=== PATIENT | male | born 1945 | race Caucasian/White ===

== ENCOUNTER 2017-04-13 08:32 | Inpatient (IN) ==
[2017-04-13 09:23] LABS: Mean Corpuscular HGB Conc 33.1 g/dL (31.0-36.0); Mean Corpuscular Hemoglobin 31.8 pg (26.0-34.0); Platelet Count 228 K/mcL (140-440); RBC 4.73 M/mcL (4.50-5.90); Red Cell Distribution Width 13.7 % (11.5-14.5)
--- NOTE | 2017-04-13 09:29 | Emergency Department Note ---
Upper Extremity HPI - General Chief Complaint: Extremity Injury, Upper Stated Complaint: infected, swollen l forearm Time Seen by Provider: 04/13/17 09:19 Source: patient Mode of arrival: ambulatory Limitations: no limitations - History of Present Illness HPI Narrative: 71-year-old male ,was sawing a limb from an apple tree, on Wednesday, 3 days ago. The branch fell on his arm ,received a puncture wound Place: home - Related Data Home Medications Medication Instructions Recorded Confirmed multivitamin tablet 1 tab PO QDAY 09/27/15 04/11/17 Previous Rx's Medication Instructions Recorded sildenafil 100 mg tablet 100 mg PO ONCE #7 tab 07/09/16 simvastatin 40 mg tablet 40 mg PO QPM #90 tab 07/10/16 HYDROcodone/ACETAMINOPHEN [[place] 1 each PO 3-4XD #14 tablet 11/14/16 7.5-325 Tablet] Naproxen 500 mg PO 1HRACBID #14 tablet 11/14/16 Nortriptyline HCl [Pamelor] 10 mg PO PCS #30 capsule 11/14/16 carBAMazepine [Tegretol Xr] 400 mg PO 1HRACBID #30 tab.er.12h 11/14/16 Cephalexin [Keflex] 500 mg PO QIDP #40 capsule 04/11/17 Allergies Allergy/AdvReac Type Severity Reaction Status Date / Time Sulfa (Sulfonamide Allergy Unknown Skin Verified 11/14/16 17:31 Antibiotics) reaction Tetracyclines Allergy Unknown Skin Verified 11/14/16 17:31 reaction Review of Systems All systems ED: reviewed and negative except as stated. Constitutional: Denies: fever Eyes: Denies: eye pain ENT ED: Denies: ear pain Cardiovascular: Denies: chest pain Respiratory: Denies: cough Gastrointestinal: Denies: abdominal pain Genitourinary: Denies: urgency Integumentary: Reports: as per HPI, other (redness and tenderness to the left forearm) Past Medical History - Past Medical History Medical history: Reports: hypertension, other (3cm aaa, BPH) Surgical history ED: Reports: other (prostatectomy, baCK SURGERY.) Family history: Reports: cancer (MOTHER CERVICAL, FATHER PANCREATIC) - Social History smoking status: Current every day smoker Alcohol use: Reports: Occasionally Drug use: Reports: none Physical Exam - General Limitations: no limitations General appearance: alert - Head Head exam: atraumatic - Eye Eye exam: Present: normal appearance - ENT ENT exam: normal exam - Neck Neck exam: Present: normal inspection, full ROM - Chest Chest inspection: Present: normal inspection - Respiratory Respiratory exam: Present: normal lung sounds bilaterally, respiratory distress - Cardiovascular Cardiovascular exam: Present: regular rate, normal rhythm, bradycardia - Abdominal Exam Abdominal exam: Present: soft. Absent: distention, tenderness - Expanded Upper Extremity Exam Shoulder exam: Present: normal inspection, full ROM Arm exam: Present: normal inspection, full ROM Elbow exam: Present: normal inspection, full ROM Forearm/Wrist exam: Present: tenderness, swelling, erythema, other (PUNCTURE WOUND WITH TENDERNESS.) Course Vital Signs Temperature 97.6 F 04/13/17 08:33 Pulse Rate 96 H 04/13/17 08:33 Respiratory Rate 16 04/13/17 08:33 Blood Pressure 117/78 04/13/17 08:33 Pulse Oximetry (%) 98 04/13/17 08:33 Temperature 97.6 F 04/13/17 08:33 Pulse Rate 79 04/13/17 11:01 Respiratory Rate 18 04/13/17 11:01 Blood Pressure 128/76 04/13/17 11:01 Pulse Oximetry (%) 95 04/13/17 11:01 Extremity Injury, Upper - MDM Narrative Medical decision making narrative: Lactic acid 1.0, CBC 13,000. Dr. Das here to evaluate the patient started on vancomycin and Zosyn. To be admitted possible surgery if continues. - Lab Data Result diagrams: 04/13/17 08:50 04/13/17 08:50 Lab Results 04/13/17 04/13/17 04/13/17 Range/Units 08:50 08:50 08:50 WBC 15.7 H (4.5-11.0) K/mcL RBC 4.73 (4.50-5.90) M/mcL Hgb 15.0 (13.5-16.5) g/dL Hct 45.4 (41.0-55.0) % MCV 96.0 (80.0-100.0) fL MCH 31.8 (26.0-34.0) pg MCHC 33.1 (31.0-36.0) g/dL RDW 13.7 (11.5-14.5) % Plt Count 228 (140-440) K/mcL MPV 8.9 (7.4-10.4) fL Total Counted 200 Seg Neutrophils % 78 (38-78) % Band Neutrophils % 5 (0-10) % Lymphocytes % 13 L (15-49) % Monocytes % (Manual) 4 (1-12) % Eosinophils % (Manual) 1 (0-7) % Platelet Estimate Normal (NORMAL) RBC Morphology Normal (NORMAL) VBG Lactic Acid 1.0 (0.5-2.2) mmol/L Sodium 134 (133-145) mmol/L Potassium 4.4 (3.3-5.1) mmol/L Chloride 97 (96-108) mmol/L Carbon Dioxide 23 (22-30) mmol/L Anion Gap 14.0 (8-16) BUN 11 (8-23) mg/dl Creatinine 1.1 (0.7-1.2) mg/dl GFR Calculation 68 Glucose 142 H (70-105) mg/dL Calcium 9.1 (8.6-10.4) mg/dl Total Bilirubin 0.6 (0.0-1.0) mg/dL AST 10 (0-37) U/l ALT 8 (0-40) U/l Alkaline Phosphatase 96 (39-117) U/L Total Protein 6.8 (5.9-8.4) gm/dL Albumin 3.8 (3.2-5.2) gm/dL Globulin 3.0 (2.2-3.7) gm/dL Albumin/Globulin Ratio 1.3 (1.0-2.3) Disposition Clinical Impression: Cellulitis of left forearm Disposition: Xfer As Outpt/Obs ([facility]) Condition: Good Referrals: Tres Eugene MD [Primary Care Provider] -
[2017-04-13 09:44] LABS: ALT/SGPT 8 U/l (0-40); Albumin 3.8 gm/dL (3.2-5.2); Albumin/Globulin Ratio 1.3 (1.0-2.3); Alkaline Phosphatase 96 U/L (39-117); Blood Urea Nitrogen 11 mg/dl (8-23)
[2017-04-13 10:00] LABS: Band Neutrophils % 5 % (0-10); Eosinophils % (Manual) 1 % (0-7); Lymphocytes % 13 % (15-49); Monocytes % (Manual) 4 % (1-12); Platelet Estimate NORMAL (NORMAL); RBC Morphology NORMAL (NORMAL); Segmented Neutrophils % 78 % (38-78)
[2017-04-13] MEDS ORDERED: ONDANSETRON 4 MG/2 ML VIAL IV ONE (10:29)
[2017-04-13] MEDS ORDERED: VANCOMYCIN 1,000 MG in 0.9 % SODIUM CHLORIDE 250 ML IV ONE (10:30)
[2017-04-13] MEDS ORDERED: ONDANSETRON 4 MG/2 ML VIAL ONE (10:34)
[2017-04-13] MEDS ORDERED: HYDROmorphone 2 MG/ML SYRINGE ONE (10:34)
--- NOTE | 2017-04-13 11:04 | XRay Report ---
CLINICAL INFORMATION: Wrist pain and swelling COMPARISON: None FINDINGS: No fracture or other osseous abnormality. Joint spaces are normal in width and alignment. Soft tissues are unremarkable. IMPRESSION: Normal exam. Interpreted and Authenticated by: Igor Reyez 04/13/17
[2017-04-13] MEDS ORDERED: PIPERACILLIN SODIUM/TAZOBACTAM 3.375 GM in DEXTROSE 5% IN WATER 50 ML IV SCH ×2 (11:45→12:30)
[2017-04-13] MEDS: HYDROmorphone 2 MG/ML SYRINGE IV PRN ×2 (11:58→13:35)
[2017-04-13] MEDS ORDERED: HYDROcodone/APAP 5/325MG TABLET PO PRN (12:23)
[2017-04-13] MEDS ORDERED: ONDANSETRON 4 MG/2 ML VIAL IV PRN (12:23)
[2017-04-13] MEDS ORDERED: HYDROmorphone 2 MG/ML SYRINGE IV PRN ×2 (13:33→14:24)
[2017-04-13] MEDS ORDERED: ACETAMINOPHEN 325 MG TABLET PO PRN (14:24)
[2017-04-13] MEDS: 0.9 % SODIUM CHLORIDE 1,000 ML IV SCH (16:28)
[2017-04-13] MEDS ORDERED: ZOLPIDEM 5 MG TABLET PO PRN ×2 (17:40→21:00)
--- NOTE | 2017-04-13 17:45 | General Surg History&Physical ---
History of Present Illness Patient information: Note initiated : 04/13/17 at 5:43 pm Service Date, if different from initiated Date: [] Patient: Zeke Salas 71 y/o M admitted on 04/13/17 for Infected, Swollen Lt Forearm. Chief Complaint: [] Chief complaint: swelling and pain left forearm HPI: Mr. Salas is a 71 year old male whois admitted with severe cellulitis of the left forearm. The patient was determined an apple tree on Wednesday when L [place] broke and punctured him and his left forearm. He was seen in the emergency room and evaluated. He was treated with antibiotics and discharged Since discharge he has had progressive swelling and rednessover his arm that is spread above his elbow. He states that he was able to express some purulence from the puncture site yesterday and today. He has extensive cellulitis and has leukocytosis. He is admitted for antibiotics IV, CT scan of the forearm; and possible exploration if he has retained foreign body or abscess formation. Review of Systems - Constitutional no headache(s), no malaise, no weakness - EENT Nose, mouth and throat: no abnormal hearing, no dizziness, no hoarseness, no throat swelling - Cardiovascular no claudication, no edema, no palpatations, no slow heart rate, no syncope - Respiratory no cough, no wheezing, no chest congestion - Gastrointestinal no abdominal pain, no constipation, no dysphagia, no heartburn, no nausea, no vomiting - Genitourinary no urinary incontinence, no urinary urgency - Musculoskeletal no arthralgias, no joint swelling, no numbness, no tingling - Integumentary no hirsutism, no pruritus, no swelling, no jaundice - Neurological no abnormal hearing, no confusion, no headache(s) (7 units DNA of his urine did not), no numbness, no syncope, no tremor(s) - Psychiatric no anxiety, no depression, no mood swings - Endocrine no fatigue (2 much), no palpitations (is changed), no polyuria (note whether this just) - Hematologic/Lymphatic no easy bleeding, no easy bruising, no lymphadenopathy - Allergic/Immunologic no tongue swelling, no throat swelling, no uticaria, no wheezing, no lip swelling (the entire genital and investigated intravaginal exactly For this spot Ludin. Labetalol) Past History Past medical history: prostate cancer Hypertension ( Past surgical history: radical prostatectomy with bilateral pelvic lymphadenectomy Back surgery Inguinal hernia surgery Past family history: pancreatic cancer Uterine cervical cancer Past social history: occasional alcohol use [id number] smoking history no substance abuse Medications and Allergies Home Medications Medication Instructions Recorded Confirmed Type Cephalexin [Keflex] 500 mg PO QIDP #40 capsule 04/11/17 04/13/17 Rx Allergies Allergy/AdvReac Type Severity Reaction Status Date / Time Sulfa (Sulfonamide Allergy Unknown Skin Verified 11/14/16 17:31 Antibiotics) reaction Tetracyclines Allergy Unknown Skin Verified 11/14/16 17:31 reaction Exam Temp Pulse Resp BP Pulse Ox 98.2 F 76 16 139/81 93 04/13/17 15:34 04/13/17 13:58 04/13/17 15:34 04/13/17 15:34 04/13/17 15:34 - General physical appearance well developed, well nourished, no distress - Eyes PERRL, normal ocular movement - ENT normal pinna, normal nares, normal mucosa, no hearing loss, no congestion - Head Head exam IM: Present: atraumatic, normocephalic - Neck no masses, no bruits, trachea midline, no lymphadectomy, no venous distension - Cardiovascular Cardiovascular exam IM: Present: normal rate and rhythm - Respiratory normal expansion, normal respiratory effort, clear to percussion, clear to auscultation - Abdomen Abdomen: Present: soft, non tender, bowel sounds, surgical scars Hernia: Present: none, incisional (small lower midline incisional hernia) - Integumentary Present: no rash, no growths, no abnormal pigmentation - Neurologic Present: normal coordination, normal sensation - Musculoskeletal Present: normal gait, normal posture, other (swollenleft forearm extending from the wrist to slightly above the antecubital space with intense erythema and 4+ tenderness. Puncture wound along the radial aspect of forearm with small amount of purulent drainage;no axillary adenopathy noted) - Psychiatric Present: oriented to time, oriented to person, oriented to place, speech is normal, memory intact Assessment and Plan (1) Puncture wound of arm, left, complicated Status: Acute (2) Cellulitis of arm, left vancomycin 1 g IV every 12 hours Zosyn 500 mg IV every [address] of forearm with IV contrast Wide incision and debridement if neede Status: Acute
[2017-04-13 18:14] LABS: Blood Urea Nitrogen 11 mg/dl (8-23)
[2017-04-13] MEDS ORDERED: IOPAMIDOL 100 ML BOTTLE IJ ONE (18:28)
--- NOTE | 2017-04-13 18:48 | Cat Scan Report ---
CLINICAL INFORMATION: History of trauma with foreign body lies in the extensor compartment of the forearm with associated inflammation or infection TECHNIQUE: 80 cc of Optiray 320 were injected intravenously and three minutes later 2.5 helical slices were obtained from the elbow through the mid metacarpal region. Following reconstruction, sagittal coronal axial reformatted images were processed and reviewed at multiple windows and levels. FINDINGS: There is a 3 x 1 cm foreign body, likely a splinter, lodged in the extensor compartment of the mid forearm. There is mild surrounding myositis, but no definite evidence of a discrete abscess. It is adjacent to distal arterial branches, but there is no evidence of active hemorrhage to suggest arterial disruption. The radius and ulna are spared - no osseous abnormality. Flexor compartment is entirely unremarkable. There is a moderate amount of cellulitis in the subcutaneous fat of the elbow extending into the mid forearm - particularly on the ulnar side. IMPRESSION: 1. 3 x 1 cm air-containing linear foreign body lodged in the extensor compartment of the mid forearm - most likely a large wood splinter. There is moderate surrounding myositis, but no evidence of discrete abscess. It does not involve the bone. No evidence of hemorrhage although the splinter is adjacent to distal arborizing arterial branches. Interpreted and Authenticated by: Igor Reyez 04/13/17
[2017-04-13] MEDS: VANCOMYCIN 1,000 MG in 0.9 % SODIUM CHLORIDE 250 ML IV SCH (20:21)
[2017-04-13] MEDS: DOCUSATE SODIUM 100 MG CAPSULE PO SCH (20:22)
[2017-04-13] MEDS: 0.9 % SODIUM CHLORIDE 10 ML SYRINGE IV SCH (20:22)
[2017-04-13] MEDS: PIPERACILLIN SODIUM/TAZOBACTAM 3.375 GM in DEXTROSE 5% IN WATER 50 ML IV SCH (22:11)
[2017-04-14] MEDS: PIPERACILLIN SODIUM/TAZOBACTAM 3.375 GM in DEXTROSE 5% IN WATER 50 ML IV SCH ×3 (05:28→21:37)
[2017-04-14] MEDS: 0.9 % SODIUM CHLORIDE 10 ML SYRINGE IV SCH (05:28)
[2017-04-14 06:41] LABS: Mean Cell Volume 96.4 fL (80.0-100.0); Mean Corpuscular HGB Conc 33.1 g/dL (31.0-36.0); Platelet Count 194 K/mcL (140-440); RBC 4.32 M/mcL (4.50-5.90); Red Cell Distribution Width 13.7 % (11.5-14.5)
[2017-04-14 06:52] LABS: Blood Urea Nitrogen 11 mg/dl (8-23)
[2017-04-14 07:43] LABS: Eosinophils % (Manual) 5 % (0-7); Lymphocytes % 12 % (15-49); Monocytes % (Manual) 9 % (1-12); Platelet Estimate NORMAL (NORMAL); RBC Morphology NORMAL (NORMAL); Segmented Neutrophils % 74 % (38-78)
[2017-04-14] MEDS ORDERED: ONDANSETRON 4 MG/2 ML VIAL IV ONE (07:45)
[2017-04-14] MEDS ORDERED: MIDAZOLAM 5 MG/5 ML VIAL IV ONE (07:45)
[2017-04-14] MEDS ORDERED: PROPOFOL 200 MG/20 ML VIAL IV ONE (07:45)
[2017-04-14] MEDS ORDERED: GLYCOPYRROLATE 0.2 MG/ML VIAL IV ONE (07:45)
[2017-04-14] MEDS ORDERED: KETAMINE 100 MG/ML ML IV ONE (07:45)
[2017-04-14] MEDS ORDERED: LIDOCAINE HCL/PF 100 MG/5 ML SYRINGE IV ONE (07:45)
[2017-04-14] MEDS ORDERED: fentaNYL 100 MCG/2 ML VIAL IV ONE (07:45)
[2017-04-14] MEDS ORDERED: ENOXAPARIN 40 MG/0.4 ML SYRINGE SQ SCH (09:00)
[2017-04-14] MEDS ORDERED: PROMETHAZINE 25 MG/ML VIAL IV PRN (09:58)
[2017-04-14] MEDS ORDERED: HYDROmorphone 2 MG/ML SYRINGE IV PRN (09:58)
[2017-04-14] MEDS ORDERED: IPRATROPIUM/ALBUTEROL 3 ML AMPUL.NEB NEB PRN (09:58)
[2017-04-14] MEDS ORDERED: BENZOCAINE/MENTHOL 1 LOZENGE PO PRN (09:58)
[2017-04-14] MEDS ORDERED: METHOCARBAMOL 1,000 MG/10 ML VIAL IV PRN (09:58)
[2017-04-14] MEDS ORDERED: MEPERIDINE 25 MG/ML SYRINGE IV PRN (09:58)
[2017-04-14] MEDS ORDERED: LACTATED RINGERS 1,000 ML IV SCH (10:00)
--- NOTE | 2017-04-14 10:27 | Brief Operative Note ---
Date of procedure: 04/14/17 Pre-op diagnosis: foreign body with cellulitis of left forearm Post-op diagnosis: same Procedure: exploration with debridement and removal of wood fragment left arm Grafts/Implants: No Anesthesia: GLMA Findings: very large wood fragment imbedded in muscle of left forearm extending down to radius ;some early necrosis of tissue Complications: none Surgeon: Rupert Das Estimated blood loss (cc): 0 Specimens Removed/Pathology: none sent Condition: stable Disposition: PACU
[2017-04-14] MEDS ORDERED: LABETALOL 5 MG/ML ML IV ONE (10:49)
[2017-04-14] MEDS: fentaNYL 100 MCG/2 ML VIAL IV PRN ×4 (10:55→11:17)
[2017-04-14] MEDS: METOPROLOL TARTRATE 5 MG/5 ML VIAL IV SCH (11:09)
[2017-04-14] MEDS ORDERED: ACETAMINOPHEN 325 MG TABLET PO PRN (11:40)
[2017-04-14] MEDS ORDERED: ZOLPIDEM 5 MG TABLET PO PRN (11:40)
[2017-04-14] MEDS ORDERED: ONDANSETRON 4 MG/2 ML VIAL IV PRN (11:40)
[2017-04-14] MEDS: 0.9 % SODIUM CHLORIDE 1,000 ML IV SCH (11:42)
[2017-04-14] MEDS: HYDROcodone/APAP 5/325MG TABLET PO PRN ×2 (14:16→19:28)
[2017-04-14] MEDS: HYDROmorphone 2 MG/ML SYRINGE IV PRN (19:32)
[2017-04-14] MEDS: VANCOMYCIN 1,000 MG in 0.9 % SODIUM CHLORIDE 250 ML IV SCH (20:08)
[2017-04-14] MEDS: DOCUSATE SODIUM 100 MG CAPSULE PO SCH (20:10)
[2017-04-15] MEDS: HYDROmorphone 2 MG/ML SYRINGE IV PRN ×4 (00:38→21:21)
[2017-04-15] MEDS: HYDROcodone/APAP 5/325MG TABLET PO PRN ×2 (00:38→07:22)
[2017-04-15] MEDS: 0.9 % SODIUM CHLORIDE 1,000 ML IV SCH ×3 (02:37→20:11)
[2017-04-15] MEDS: PIPERACILLIN SODIUM/TAZOBACTAM 3.375 GM in DEXTROSE 5% IN WATER 50 ML IV SCH ×3 (05:47→22:25)
[2017-04-15 07:30] LABS: Mean Cell Volume 95.7 fL (80.0-100.0); Mean Corpuscular HGB Conc 33.5 g/dL (31.0-36.0); Platelet Count 214 K/mcL (140-440); RBC 4.03 M/mcL (4.50-5.90)
[2017-04-15 07:51] LABS: Blood Urea Nitrogen 10 mg/dl (8-23)
[2017-04-15 08:38] LABS: Eosinophils % (Manual) 2 % (0-7); Lymphocytes % 19 % (15-49); Monocytes % (Manual) 6 % (1-12); Platelet Estimate NORMAL (NORMAL); RBC Morphology NORMAL (NORMAL); Segmented Neutrophils % 73 % (38-78)
[2017-04-15] MEDS: ENOXAPARIN 40 MG/0.4 ML SYRINGE SQ SCH (09:56)
[2017-04-15] MEDS: DOCUSATE SODIUM 100 MG CAPSULE PO SCH ×3 (09:57→21:13)
[2017-04-15] MEDS: VANCOMYCIN 1,000 MG in 0.9 % SODIUM CHLORIDE 250 ML IV SCH ×3 (10:00→21:13)
--- NOTE | 2017-04-15 17:05 | General Surgery Progress Note ---
Subjective Patient reports: feels better, pain is less, afebrile Narrative: Note initiated : 04/15/17 at 5:03 pm Service Date, if different from initiated Date: [] Patient: Zeke Salas 71 y/o M admitted on 04/13/17 for Infected, Swollen Lt Forearm/Puncture, Cellulitis. Chief Complaint: [patient is doing better. He has less swelling and less pain. His culture is growing outgram-negative bacilluswhich has not been completely identified and sensitivities are not available. He is responding to his present antibiotics. His white blood count is normal.] Objective Temp Pulse Resp BP Pulse Ox 97.5 F 66 18 160/81 95 04/15/17 15:18 04/15/17 11:30 04/15/17 15:18 04/15/17 15:18 04/15/17 15:18 - Additional Data Intake & Output - Last 24 hours: Intake & Output 04/13/17 04/14/17 04/15/17 04/16/17 05:59 05:59 05:59 05:59 Intake Total 1730 / 1980 4773 / 4773 830 / 830 Output Total 1800 / 1800 2051 400 / 400 Balance -70 / 180 2721 / 2721 430 / 430 Weight 162 lb 8 oz 163 lb - General physical appearance well developed, well nourished, no distress - Musculoskeletal other (edema of the arm is significantly improved. He has more mobility of his hand and his elbow. The cellulitis is significantly improved.) - Labs 04/15/17 05:35 04/15/17 05:35 Diabetes panel 04/15/17 Range/Units 05:35 Sodium 135 (133-145) mmol/L Potassium 4.3 (3.3-5.1) mmol/L Chloride 101 (96-108) mmol/L Carbon Dioxide 23 (22-30) mmol/L BUN 10 (8-23) mg/dl Creatinine 1.0 (0.7-1.2) mg/dl Glucose 105 (70-105) mg/dL Calcium 8.5 L (8.6-10.4) mg/dl Calcium panel 04/15/17 Range/Units 05:35 Calcium 8.5 L (8.6-10.4) mg/dl Pituitary panel 04/15/17 Range/Units 05:35 Sodium 135 (133-145) mmol/L Potassium 4.3 (3.3-5.1) mmol/L Chloride 101 (96-108) mmol/L Carbon Dioxide 23 (22-30) mmol/L BUN 10 (8-23) mg/dl Creatinine 1.0 (0.7-1.2) mg/dl Glucose 105 (70-105) mg/dL Calcium 8.5 L (8.6-10.4) mg/dl Adrenal panel 04/15/17 Range/Units 05:35 Sodium 135 (133-145) mmol/L Potassium 4.3 (3.3-5.1) mmol/L Chloride 101 (96-108) mmol/L Carbon Dioxide 23 (22-30) mmol/L BUN 10 (8-23) mg/dl Creatinine 1.0 (0.7-1.2) mg/dl Glucose 105 (70-105) mg/dL Calcium 8.5 L (8.6-10.4) mg/dl Assessment and Plan (1) Puncture wound of arm, left, complicated Status: Acute Assessment and plan: will continue on present therapy until sensitivities are available. Current Visit: Yes (2) Cellulitis of arm, left Status: Acute Current Visit: Yes - Time Spent With Patient Total time spent is greater than 50% in coordination of care (as documented) at patient's floor/unit and/or counseling patient:
[2017-04-15] MEDS: METOPROLOL TARTRATE 5 MG/5 ML VIAL IV SCH (20:11)
[2017-04-16 06:01] LABS: Mean Cell Volume 95.3 fL (80.0-100.0); Mean Corpuscular HGB Conc 33.5 g/dL (31.0-36.0); Platelet Count 228 K/mcL (140-440); RBC 3.84 M/mcL (4.50-5.90); Red Cell Distribution Width 13.5 % (11.5-14.5)
[2017-04-16] MEDS: PIPERACILLIN SODIUM/TAZOBACTAM 3.375 GM in DEXTROSE 5% IN WATER 50 ML IV SCH ×2 (06:05→15:25)
[2017-04-16 06:39] LABS: Blood Urea Nitrogen 8 mg/dl (8-23)
[2017-04-16] MEDS: 0.9 % SODIUM CHLORIDE 1,000 ML IV SCH ×2 (06:51→10:04)
[2017-04-16 07:00] LABS: Band Neutrophils % 2 % (0-10); Basophils % (Manual) 1 % (0-2); Eosinophils % (Manual) 3 % (0-7); Lymphocytes % 12 % (15-49); Monocytes % (Manual) 6 % (1-12); Platelet Estimate NORMAL (NORMAL); RBC Morphology NORMAL (NORMAL); Segmented Neutrophils % 76 % (38-78)
[2017-04-16] MEDS: ENOXAPARIN 40 MG/0.4 ML SYRINGE SQ SCH (08:55)
[2017-04-16] MEDS: DOCUSATE SODIUM 100 MG CAPSULE PO SCH (08:55)
[2017-04-16] MEDS: VANCOMYCIN 1,000 MG in 0.9 % SODIUM CHLORIDE 250 ML IV SCH (08:58)
[2017-04-16] MEDS: HYDROmorphone 2 MG/ML SYRINGE IV PRN ×2 (15:31→18:28)
--- NOTE | 2017-04-16 18:02 | Discharge Summary ---
Providers - Providers Patient information: Note initiated : 04/16/17 at 6:00 pm Service Date, if different from initiated Date: [] Patient: Zeke Salas 71 y/o M admitted on 04/13/17 for Infected, Swollen Lt Forearm/Puncture, Cellulitis. Chief Complaint: [] Date of admission: 04/13/17 Discharge date: 04/16/17 Attending physician: Rupert Das Hospitalization Hospital course: 71-YEAR-OLD MALE WHO WAS TRIMMING A TREE ON 11 APR 2017 WHEN A LIMB BROKE AND PUNCTURED HIS LEFT FOREARM. hE WAS SEEN IN THE EMERGENCY ROOM ON THE DAY. tHE WOUND WAS REPORTEDLY CLEAN AND A DRESSING APPLIED. hE WAS STARTED ON CEFAZOLIN AND ADVISED TO FOLLOW-UP WITH HIS PRIMARY PHYSICIAN. oVER THE NEXT 2 DAYS HE DEVELOPED INCREASED SWELLING, PAIN, AND REDNESS. hE PRESENTED TO THE EMERGENCY ROOM ON 13 APRIL WITH FLORID CELLULITIS AND SWELLING OF THE FOREARM. hE WAS ADMITTED AND STARTED ON ANTIBIOTICS. oN THE EVENING OF [address] SCAN WAS DONE WHICH SHOWED RETAINED FOREIGN BODY WITH ABSCESS FORMATION. tHE AREA WAS EXPLORED AND DEBRIDED ON 14 April AND A LARGE FRAGMENT OF WOOD WAS REMOVED FROM THE INCISION hE HAS BEEN TREATED WITH VANCOMYCIN AND zOSYN. tHE ERYTHEMA AND CELLULITIS HAS SIGNIFICANTLY IMPROVED. hE HAS MUCH BETTER MOBILITY. hIS WHITE BLOOD COUNT HAS RETURNED TO NORMAL. tHE ORGANISM HAS NOT BEEN DEFINITELY IDENTIFIED HOWEVER IT IS FELT TO BE A GRAM-POSITIVE RADHA. tHE INCISION TODAY LOOKS CLEAN. iT IS FELT THAT THE PATIENT IS STABLE TO BE DISCHARGED HOME hE WILL BE DISCHARGED ON lEVAQUIN AND AMOXICILLIN. hE WILL HAVE FOLIN THE OFFICE ON wednesday AND ANTIBIOTICS WILL BE MODIFIED BASED ON FINAL SENSITIVITY STUDIES. Discharge diagnosis: ABSCESS AND CELLULITIS LEFT FOREARM Secondary discharge diagnosis: RETAINED ROOT FRAGMENT OF PUNCTURE WOUND LEFT FOREARM Reason for admission: CELLULITIS LEFT FOREARM Procedures: EXCISIONAL DEBRIDEMENT, EXPLORATION,AND REMOVAL OF WOOD FRAGMENT LEFT FOREARM Pertinent studies/significant findings: Ct OF THE LEFT ARM Complications: NONE Exam Temp Pulse Resp BP Pulse Ox 98.2 F 66 16 146/75 95 04/16/17 15:38 04/16/17 04:00 04/16/17 15:38 04/16/17 15:38 04/16/17 15:38 - General physical appearance well developed, well nourished, no distress - Neck no masses, no bruits, trachea midline, no lymphadectomy, no venous distension - Cardiovascular Cardiovascular exam IM: Present: normal rate and rhythm, RRR, +S1, +S2. Absent : JVD - Abdomen Abdomen: Present: soft, non tender. Absent: guarding - Integumentary Present: no growths, no abnormal pigmentation, other (EXTENSIVE CELLULITIS LEFT FOREARM WITH OPEN SURGICAL WOUND ALONG THE RADIAL ASPECT) - Psychiatric Present: oriented to time, oriented to person, oriented to place, speech is normal, memory intact Discharge Plan - Patient/Caregiver Discharge Instructions Activity: increase activity as tolerated, as instructed (PATIENT IS TO KEEP LEFT ARM ELEVATED MUCH POSSIBLE UNTIL HE RETURNS TO THE OFFICE) Diet: Regular Diet Prescriptions: Amoxicillin/Potassium Clav [Augmentin] 875 mg PO Q12H #30 tablet Levofloxacin [Levaquin] 750 mg PO DAILY #14 tablet oxyCODONE HCL/ACETAMINOPHEN [Percocet 10-325 mg Tablet] 1 each PO Q4 #90 tablet - Follow up Plan Follow up with: Tres Eugene MD [Primary Care Provider] - Rupert Das MD [Physician] - Disposition: Home, Self-Care Prognosis: Good Rehab Potential: Good I certify that the patient requires SNF services.: No Overall status at discharge: patient is progressing back to baseline Pending Studies Resuscitation Status Full Code Diet Regular Diet Start WedApril 14 Lunch Acetaminophen/Hydrocodone Bitart ([place] 5/325mg) 1 tab PO Q4HP PRN PRN Reason: Pain Last Admin: 04/15/17 07:22 Dose: 1 tab Admin: 04/15/17 00:38 Dose: 1 tab Admin: 04/14/17 19:28 Dose: 1 tab Admin: 04/14/17 14:16 Dose: 1 tab Docusate Sodium (Colace) 100 mg PO BID [facility] Last Admin: 04/16/17 08:55 Dose: 100 mg Admin: 04/15/17 21:13 Dose: Not Given Admin: 04/15/17 09:57 Dose: 100 mg Admin: 04/14/17 20:10 Dose: Not Given Enoxaparin Sodium (Lovenox) 40 mg SQ DAILY [facility] Last Admin: 04/16/17 08:55 Dose: 40 mg Admin: 04/15/17 09:56 Dose: 40 mg Hydromorphone HCl (Dilaudid) 1 mg IV Q2HP PRN PRN Reason: Pain Last Admin: 04/16/17 15:31 Dose: 1 mg Admin: 04/15/17 21:21 Dose: 1 mg Admin: 04/15/17 17:07 Dose: 1 mg Admin: 04/15/17 10:00 Dose: 1 mg Admin: 04/15/17 00:38 Dose: 1 mg Admin: 04/14/17 19:32 Dose: 1 mg Sodium Chloride (Sodium Chloride 0.9%) 1,000 mls @ 75 mls/hr IV .[id number] [facility] Last Admin: 04/16/17 10:04 Dose: 75 mls/hr Infusion: 04/16/17 10:01 Dose: 75 mls/hr Admin: 04/16/17 06:51 Dose: Not Given Infusion: 04/15/17 23:40 Dose: 75 mls/hr Infusion: 04/15/17 21:10 Dose: 0 mls/hr Admin: 04/15/17 17:06 Dose: 75 mls/hr Infusion: 04/15/17 17:06 Dose: 75 mls/hr Admin: 04/15/17 02:37 Dose: 75 mls/hr Infusion: 04/15/17 01:02 Dose: 75 mls/hr Admin: 04/14/17 11:42 Dose: 75 mls/hr Piperacillin Sod/Tazobactam (Sod 3.375 gm/ Dextrose) 50 mls @ 100 mls/hr IV Q8H [facility] Last Infusion: 04/16/17 16:00 Dose: 100 mls/hr Admin: 04/16/17 15:25 Dose: 100 mls/hr Infusion: 04/16/17 07:00 Dose: 100 mls/hr Admin: 04/16/17 06:05 Dose: 100 mls/hr Infusion: 04/15/17 22:55 Dose: 100 mls/hr Admin: 04/15/17 22:25 Dose: 100 mls/hr Infusion: 04/15/17 16:35 Dose: 100 mls/hr Admin: 04/15/17 15:26 Dose: 100 mls/hr Infusion: 04/15/17 06:20 Dose: 100 mls/hr Admin: 04/15/17 05:47 Dose: 100 mls/hr Infusion: 04/14/17 22:07 Dose: 100 mls/hr Admin: 04/14/17 21:37 Dose: 100 mls/hr Infusion: 04/14/17 14:09 Dose: 100 mls/hr Admin: 04/14/17 13:39 Dose: 100 mls/hr Vancomycin HCl 1,000 mg/ (Sodium Chloride) 250 mls @ 250 mls/hr IV Q12H [facility] Last Infusion: 04/16/17 10:01 Dose: 250 mls/hr Admin: 04/16/17 08:58 Dose: 250 mls/hr Infusion: 04/15/17 22:15 Dose: 250 mls/hr Admin: 04/15/17 21:13 Dose: 250 mls/hr Infusion: 04/15/17 11:09 Dose: 250 mls/hr Admin: 04/15/17 10:00 Dose: 250 mls/hr Infusion: 04/14/17 21:15 Dose: 0 mls/hr Admin: 04/14/17 20:08 Dose: 250 mls/hr Shift Summary 04/16/17 14:30 Shift Summary by Patric Doherty Patient has had a good day. Pain has not been an issue; left arm remains swollen. MD has not yet assessed. Are waiting for a sensitivity; may not be ready until AM. Assume patient will remain here until sensitivity is available. Uses call light appropriately. Has been up walking hallway. Pleasant and cooperative. Initialized on 04/16/17 14:30 - END OF NOTE
--- NOTE | 2017-04-21 14:12 | Operative Note ---
DATE OF OPERATION: 04/14/2017 PREOPERATIVE DIAGNOSIS: Foreign body with cellulitis, left forearm. POSTOPERATIVE DIAGNOSIS: Wood fragment of deep submuscular area, radial aspect left forearm with cellulitis and early abscess formation. PROCEDURE: Exploration of left forearm with debridement of muscle and fascia and removal of large wood fragment. SURGEON: Rupert Das MD. FINDINGS: Very large wood fragment embedded in the muscle of the left forearm, extending down to the radius but not penetrating the bone. Some early necrosis of tissue with abscess formation. DESCRIPTION OF PROCEDURE: Under general anesthesia, the left forearm was prepped and draped in the sterile field. A probe was placed in the tract of the injury along the radial aspect of the left mid forearm. Using electrocautery this area was opened down to the muscle. Once it was fully opened, a very large wood fragment was noted. It appears that part of the fragment broke off when the limb penetrated the arm. The fragment extended down to but did not injure the midportion of the radius. It appeared to go between the muscle bundles, but there was some tear in the fascia, and there was some necrosis of the tissue. Once the fragment was removed, the area was irrigated and cultures were taken. Using Metzenbaum scissors the necrotic tissue, including muscle and fascia, were debrided until there was healthy-appearing muscle. All purulent debris was removed. The wound was irrigated again. It was packed with multiple strips of Aquacel Ag gauze. This was covered with 4 x 4s and Kerlix gauze. The patient tolerated the procedure well. He was awakened and transferred to the postanesthetic care unit in stable, satisfactory condition. LCS:kamilla Job ID: [id number] Doc ID: [id number] Rupert Das M.D.
== END 2017-04-16 18:55 | disposition home or self-care (01) | DRG 902 ==
LOC: ED 08:32 → MEDSUR 13:58
PROVIDERS: ADMIT Family Medicine Adult Medicine; ATTEND Family Medicine Adult Medicine